=== PATIENT | female | born 1950 | race Asian ===

== ENCOUNTER 2017-12-31 09:30 | Outpatient (CLI) | payer BC, MEDICARE ==
--- NOTE | 2017-12-31 12:56 | MRI ---
MRI CERVICAL SPINE WITHOUT CONTRAST: Date: 12/31/17 Multiplanar, multisequential imaging of cervical spine obtained. HISTORY: Cervicalgia. FINDINGS: Cervical vertebra maintain normal height and alignment. Degenerative changes are prominent at C4-5 an d C5-6 with loss of disc space and anterior osteophytes at this levels. At the C3-4 disc, mild bulge and minimal effacement of the anterior subarachnoid space. No impingemen t on the cord and no foraminal encroachment. At C4-5, posterior disc bulge and spondylosis impinge on the anterior cord. Mild foraminal encroachme nt due to uncinate hypertrophy. At C5-6, posterior disc bulge and spondylosis impinge on the anterior cord. Mild foraminal encroachme nt due to uncinate hypertrophy. At C6-7, mild disc bulge and spondylosis mildly efface the anterior subarachnoid space. No cord impin gement. No evidence of foraminal stenosis or encroachment. Cord signal appears normally preserved. IMPRESSION: Degenerative disc changes most pronounced at C4-5 and C5-6. Posterior disc bulge and spondylosis at b oth these levels impinge on the anterior cord and produce mild foraminal encroachment as described ab leoe. POS: [facility]
== END 2017-12-31 09:31 | disposition home or self-care (01) ==
LOC: SCSMRI 09:30
PROVIDERS: ATTEND Family Medicine
DX: M54.2 Cervicalgia (principal); M50.321 Other cervical disc degeneration at C4-C5 level; M50.322 Other cervical disc degeneration at C5-C6 level; M50.20 Other cervical disc displacement, unspecified cervical region; M47.892 Other spondylosis, cervical region
CPT/HCPCS: 72141

== ENCOUNTER 2018-03-04 08:41 | Outpatient (CLI) | payer BC, MEDICARE | END 2018-03-04 08:42 | disposition home or self-care (01) | LOC: BICMAMMO 08:41 | PROVIDERS: ATTEND Family Medicine | DX: Z12.31 Encounter for screening mammogram for malignant neoplasm of breast (principal); M81.0 Age-related osteoporosis without current pathological fracture; M85.859 Other specified disorders of bone density and structure, unspecified thigh; R92.1 Mammographic calcification found on diagnostic imaging of breast | CPT/HCPCS: 77063; 77067; 77080 ==

== ENCOUNTER 2018-03-09 14:59 | Outpatient (CLI) | payer MEDICARE, BC | END 2018-03-09 15:00 | disposition home or self-care (01) | LOC: BICMAMMO 14:59 | PROVIDERS: ATTEND Family Medicine | DX: R92.1 Mammographic calcification found on diagnostic imaging of breast (principal) | CPT/HCPCS: 77065; G0279 ==

== ENCOUNTER → 2018-03-16 | Day surgery (SDC) | payer BC, MEDICARE ==
--- NOTE | 2018-03-16 10:09 | MMO ---
MAMMOGRAPHICALLY GUIDED STEREOTACTIC BIOPSY OF LEFT BREAST CALCIFICATIONS: History: Left breast calcifications in the upper outer aspect of the left breast. Jacquard Loom Fixer: Dr. Garza Complications: None Specimens: Six 10 gauge vacuum assisted core biopsy specimens of left breast calcifications. Anesthesia: 11 ml of buffered 1% Lidocaine. Technique: Prior to the procedure, the risk and benefits of a stereotactic biopsy of the left breast calcificati ons were explained to the patient. She consented to the procedure. Prior mammograms were reviewed showing calcifications in the upper outer aspect of the left breast. The calcifications were localized with the stereotactic machine. Approach from lateral was performed. The lateral aspect of the breast was prepped with Betadine. Lidocaine was used to anesthetize the skin and soft tissues surrounding the calcifications. A small s kin incision was made allowing for passage of a 10 gauge core biopsy device. This device was then leticia lida into the left breast in the region of the calcifications using stereotactic guidance. Once the ne edle was in place, six 10-gauge core biopsy specimens were obtained of the calcifications. A specimen evaluation was performed showing calcifications within at least two of the specimens. A bi opsy clip was then placed at the biopsy site. The needle was removed and pressure was held to maintai n hemostatis. A post procedure mammogram was performed showing the clip at the biopsy site in the upper lateral asp ect of the left breast. No residual calcifications could be seen, but there was a small amount of pos t biopsy hematoma. IMPRESSION: Status post successful stereotactic biopsy of left breast calcifications. POS: [facility]
== END ==
LOC: SDC/OP 07:11
PROVIDERS: ATTEND Family Medicine
PROC: 0HBU3ZX Excision of Left Breast, Percutaneous Approach, Diagnostic (ICD-10-PCS; principal; 2018-03-16)
DX: N60.82 Other benign mammary dysplasias of left breast (principal)
CPT/HCPCS: 19081; 76098; 88305

== ENCOUNTER 2018-06-24 14:02 | Outpatient (CLI) | payer BC, MEDICARE | END 2018-06-24 14:03 | disposition home or self-care (01) | LOC: BICULT 14:02 | PROVIDERS: ATTEND Family Medicine | DX: R09.89 Other specified symptoms and signs involving the circulatory and respiratory systems (principal); E04.2 Nontoxic multinodular goiter | CPT/HCPCS: 93880 ==

== ENCOUNTER 2019-01-19 08:52 | Outpatient (CLI) | payer BC, MEDICARE ==
--- NOTE | 2019-01-19 09:14 | SJPRAD ---
LEFT KNEE RADIOGRAPHS 2 VIEWS: DATE: 01/19/2019. PROVIDED CLINICAL HISTORY: Knee pain. FINDINGS: There is osteophyte formation about the knee. There is conspicuous medial femorotibial and patellofe moral joint space narrowing. There is no evidence of a fracture or other acute osseous abnormality. No definite evidence for knee joint capsular distention. IMPRESSION: Degenerative arthrosis of the left knee. POS: [facility]
--- NOTE | 2019-01-19 09:15 | SJPRAD ---
RIGHT KNEE RADIOGRAPHS 2 VIEWS: DATE: 01/19/2019. PROVIDED CLINICAL HISTORY: Right knee pain. FINDINGS: There is conspicuous patellofemoral joint space loss. Tricompartmental osteophyte formation with mil d medial femorotibial joint space loss. No evidence for a fracture or other acute osseous abnormalit y. No significant knee joint capsular distention. IMPRESSION: Degenerative arthrosis of the right knee with preferential involvement of the patellofemoral joint. POS: [facility]
[2019-01-19 16:20] LABS: #Basophils 0.1 thou/uL (0.0-0.2); #Eosinphils 0.2 thou/uL (0.0-0.7); #Lymphocytes 1.8 thou/uL (1.20-3.40); #Monocytes 0.5 thou/uL (0.11-0.59); #Neutrophils 3.1 thou/uL (1.40-6.50); %Basophils 1.2 % (0.0-1.0); %Eosinophils 4.1 % (0.0-10.0); %Lymphocytes 31.1 % (21.0-51.0); %Monocytes 8.6 % (0.0-10.0); Hemoglobin 12.8 g/dL (12.0-16.0); Mean Corpuscular HGB CONC 31.6 g/dL (32.0-36.0); Mean Corpuscular Hemoglobin 27.3 pg (27.0-31.0); Mean Corpuscular Volume 86.5 fL (78.0-98.0); Mean Platelet Volume 7.5 fL (7.4-10.4); Platelet Count 259 thou/uL (130-400); RBC Distribution Width 12.9 % (11.5-14.5); Red Blood Cell (RBC) Count 4.69 mill/uL (4.20-5.40); White Blood Cell (WBC) Count 5.7 thou/uL (4.8-10.8)
[2019-01-19 16:36] LABS: Hemoglobin A1c 5.2 % (4.0-6.0)
[2019-01-19 17:05] LABS: ALT (SGPT) 22 U/L (8-55); AST (SGOT) 21 U/L (5-34); Albumin 4.3 g/dL (3.4-4.8); Alkaline Phosphatase 66 U/L (40-150); Anion Gap 13 mmol/L (10-20); BUN (Urea Nitrogen) 12 mg/dL (9.8-20.1); Bilirubin, Total 0.6 mg/dL (0.2-1.2); Calc. Creatinine Clearance 0 mL/min (70-130); Calcium 9.9 mg/dL (7.8-10.44); Carbon Dioxide 29 mmol/L (23-31); Chloride 102 mmol/L (98-107); Estimated GFR-MDRD 85; Globulin 3.3 g/dL (2.4-3.5); Glucose 93 mg/dL (80-115); Potassium 4.4 mmol/L (3.5-5.1); Protein, Total 7.6 g/dL (6.0-8.3); Sodium 140 mmol/L (136-145)
== END 2019-01-19 08:53 | disposition home or self-care (01) ==
LOC: MWLC RAD 08:52
PROVIDERS: ATTEND Family Medicine
DX: M17.0 Bilateral primary osteoarthritis of knee (principal); E21.3 Hyperparathyroidism, unspecified; R53.81 Other malaise; E11.9 Type 2 diabetes mellitus without complications
CPT/HCPCS: 80053; 83036; 83970; 84443; 85025

== ENCOUNTER 2019-06-01 14:50 | Outpatient (CLI) | payer BC, MEDICARE ==
--- NOTE | 2019-06-01 16:07 | MMO ---
Bilateral MAMMO Bilat Screen [facility]. CLINICAL HISTORY: Patient is 68 years old and is seen for screening. The patient has no family history of breast cancer. The patient has no personal history of cancer. The patient has a history of left Ultrasound Guided Core Biopsy in Mar, 2018. VIEWS: The views performed were: bilateral craniocaudal with tomosynthesis and bilateral mediolateral oblique with tomosynthesis. FILMS COMPARED: The present examination has been compared to prior imaging studies performed at [facility] on 02/23/2014, 03/27/2016, 03/04/2018 and 03/09/2018. MAMMOGRAM FINDINGS: There are scattered fibroglandular densities. Left biopsy clip. Calcs in the left upper outer breast are again seen. There are no suspicious masses, suspicious calcifications, or new areas of architectural distortion. IMPRESSION: THERE IS NO MAMMOGRAPHIC EVIDENCE OF MALIGNANCY. A ROUTINE FOLLOW-UP MAMMOGRAM IN 1 YEAR IS RECOMMENDED. THE RESULTS OF THIS EXAM WERE SENT TO THE PATIENT. ACR BI-RADS Category 2 - Benign finding MAMMOGRAPHY NOTE: 1. A negative mammogram report should not delay a biopsy if a dominant of clinically suspicious mass is present. 2. Approximately 10% to 15% of breast cancers are not detected by mammography. 3. Adenosis and dense breasts may obscure an underlying neoplasm. Reported by: TIMOTHY LARSON MD Electonically Signed: [id number]
--- NOTE | 2019-06-01 16:57 | BD ---
Exam: DEXA Bone Density 06/01/19 HISTORY: Osteoporosis, menopausal. Lumbar Spine: BMD (g/cm2) T-SCORE L1 0.835 -1.4 L2 0.748 -2.5 L3 0.717 -3.3 L4 0.672 -3.5 L1-L4 0.737 -2.8 Evidence for osteoporosis with high risk for fracture. Left hip: Femoral neck: 0.675 -1.6 Total Femur: 0.890 -0.4 Evidence for osteopenia with increased risk for fracture. POS: [facility]
--- NOTE | 2019-06-01 17:00 | RAD ---
CERVICAL SPINE THREE VIEWS: 06/01/19 HISTORY: Cervicalgia without injury. Extensive disc osteophytosis with sclerosis at C4-C5 and C5-C6 with facet arthrosis. C1 and odontoid are obscured on the AP open mouth views. Mild levoscoliosis. No prevertebral soft tissue swelling. IMPRESSION: Mild levoscoliosis. Very extensive spondylosis particularly at C4-C5 and C5-C6. If there is associate d radiculopathy, consider follow-up MRI study. POS: [facility]
== END 2019-06-01 14:51 | disposition home or self-care (01) ==
LOC: BICMAMMO 14:50
PROVIDERS: ATTEND Family Medicine
DX: Z12.31 Encounter for screening mammogram for malignant neoplasm of breast (principal); M81.0 Age-related osteoporosis without current pathological fracture; M54.2 Cervicalgia; M47.812 Spondylosis without myelopathy or radiculopathy, cervical region; M41.9 Scoliosis, unspecified; M85.852 Other specified disorders of bone density and structure, left thigh
CPT/HCPCS: 72040; 77063; 77067; 77080

== ENCOUNTER 2019-06-13 12:42 | Outpatient (CLI) | payer BC, MEDICARE ==
[2019-06-13 16:09] LABS: #Eosinphils 0.4 thou/uL (0.0-0.7); #Lymphocytes 2.8 thou/uL (1.20-3.40); #Monocytes 0.5 thou/uL (0.11-0.59); #Neutrophils 3.9 thou/uL (1.40-6.50); %Basophils 0.3 % (0.0-1.0); %Eosinophils 5.5 % (0.0-10.0); %Lymphocytes 36.8 % (21.0-51.0); %Monocytes 6.3 % (0.0-10.0); %Neutrophils 51.1 % (42.0-75.0); Hemoglobin 12.3 g/dL (12.0-16.0); Mean Corpuscular HGB CONC 32.7 g/dL (32.0-36.0); Mean Corpuscular Hemoglobin 27.5 pg (27.0-31.0); Mean Corpuscular Volume 84.2 fL (78.0-98.0); Platelet Count 230 thou/uL (130-400); RBC Distribution Width 12.5 % (11.5-14.5); Red Blood Cell (RBC) Count 4.45 mill/uL (4.20-5.40); White Blood Cell (WBC) Count 7.7 thou/uL (4.8-10.8)
--- NOTE | 2019-06-14 18:51 | EKG ---
Test Reason : Blood Pressure : / mmHG Vent. Rate : 078 BPM Atrial Rate : 078 BPM P-R Int : 160 ms QRS Dur : 086 ms QT Int : 388 ms P-R-T Axes : 056 002 010 degrees QTc Int : 442 ms Normal sinus rhythm Moderate voltage criteria for LVH, may be normal variant Borderline ECG No previous ECGs available Confirmed by DR. Dayron NATARAJAN MD ([id number]) on 06/14/2019 6:51:24 PM Referred By: CARTER Confirmed By:DR. Dayron NATARAJAN MD
== END 2019-06-13 12:43 | disposition home or self-care (01) ==
LOC: LABBT 12:42
PROVIDERS: ATTEND Orthopaedic Surgery Hand Surgery
DX: Z01.818 Encounter for other preprocedural examination (principal); M67.441 Ganglion, right hand
CPT/HCPCS: 85025; 93005; 93010

== ENCOUNTER 2019-06-14 05:50 | Day surgery (SDC) | payer BC, MEDICARE ==
[2019-06-13 15:24] VITALS: BMI 27.4
[2019-06-14] MEDS ORDERED: ceFAZolin Sodium (SDC) 2 GM/100 ML BAG ONE (05:59)
[2019-06-14] MEDS ORDERED: Lidocaine 2% Jelly 5 ML TUBE ONE (06:12)
[2019-06-14] MEDS ORDERED: Fentanyl 100 MCG/2 ML VIAL ONE (06:12)
[2019-06-14] MEDS ORDERED: Bacitracin Zinc Ointment 30 gm TUBE ONE (06:14)
[2019-06-14] MEDS ORDERED: Betamet Acet/Betamet Na Ph 30 MG/5 ML VIAL ONE (06:14)
[2019-06-14] MEDS ORDERED: Bupivacaine PF 0.5% 30 ML VIAL ONE (06:14)
[2019-06-14] MEDS ORDERED: Sodium Chloride 0.9% 10 ML ONE (06:27)
[2019-06-14] MEDS ORDERED: Ketorolac Tromethamine 30 MG/ML VIAL ONE (08:31)
--- NOTE | 2019-06-14 12:23 | OP ---
DATE OF PROCEDURE: 06/14/2019 PREOPERATIVE DIAGNOSES: Right middle finger ganglion, proximal interphalangeal, right middle finger ganglion, 1 cm diameter with a stalk located at the junction of the central slip and the lateral bands just over the proximal interphalangeal joint with synovitis in the joint. PROCEDURES PERFORMED: 1. Arthrotomy of right middle finger proximal interphalangeal joint with synovectomy. 2. Ganglion excision, right middle finger proximal interphalangeal joint. 3. Irrigation of the joint with 5 mL Celestone and tenotomy of the extensor and right middle finger proximal interphalangeal joint. SPECIMEN REMOVED: Yes, the ganglion and sent to pathology. DESCRIPTION OF PROCEDURE: After successful general endotracheal anesthesia, the limb was prepped and draped. The patient underwent immediate 10 mL of 0.5% Marcaine block before the surgery was done and will get an additional 10 after the procedure. We then outlined a zigzag Duke incision over this mass, which was more dorsal and radial than central. I carried this incision after exsanguination and inflated the tourniquet to 250 mmHg pressure through the skin and subcutaneous tissue, localized the mass with incision 1 cm distal and proximal. I dissected the mass free. Elevated the mass off the extensor tendon and then we noticed there was a stalk going through less than a millimeter, so we made a 3 mm longitudinal incision in the junction between the central slip and the lateral bands. We followed the stalk and it was synovitis within the joint. We performed a small synovectomy using small Navarro instrument. We elevated the cyst, released it in the stalk and sent as specimen. I irrigated the joint with 5 mL slowly of the Celestone and then deflated the tourniquet. We closed the tenotomy area, where we visualized the joint with interrupted 6-0 Prolene buried [id number]. Hemostasis was obtained. The wound was closed with interrupted 4-0 nylon in a mattress pattern and the patient left the operating room without evidence of anesthetic or operative complication. Job ID: [id number]
== END 2019-06-14 10:10 | disposition home or self-care (01) ==
LOC: SDC 05:50
PROVIDERS: ATTEND Orthopaedic Surgery Hand Surgery
PROC: 0RBW0ZZ Excision of Right Finger Phalangeal Joint, Open Approach (ICD-10-PCS; principal; 2019-06-14)
PROC: 0LB70ZZ Excision of Right Hand Tendon, Open Approach (ICD-10-PCS; principal; 2019-06-14)
DX: M67.441 Ganglion, right hand (principal); M65.9 Synovitis and tenosynovitis, unspecified
CPT/HCPCS: 85025; 88304; 93005; 93010; J0690; J0702; J1885; J3010; J3490; S0020

== ENCOUNTER 2019-07-12 12:11 | Day surgery (SDC) | payer BC, MEDICARE ==
[2019-07-12 13:24] LABS: #Eosinphils 0.2 thou/uL (0.0-0.7); #Lymphocytes 2.6 thou/uL (1.20-3.40); #Monocytes 0.6 thou/uL (0.11-0.59); #Neutrophils 2.9 thou/uL (1.40-6.50); %Basophils 0.4 % (0.0-1.0); %Eosinophils 3.4 % (0.0-10.0); %Lymphocytes 41.5 % (21.0-51.0); %Neutrophils 45.7 % (42.0-75.0); Hemoglobin 12.3 g/dL (12.0-16.0); Mean Corpuscular HGB CONC 32.3 g/dL (32.0-36.0); Mean Corpuscular Hemoglobin 27.8 pg (27.0-31.0); Mean Corpuscular Volume 85.8 fL (78.0-98.0); Mean Platelet Volume 6.8 fL (7.4-10.4); Platelet Count 229 thou/uL (130-400); RBC Distribution Width 12.6 % (11.5-14.5); Red Blood Cell (RBC) Count 4.43 mill/uL (4.20-5.40); White Blood Cell (WBC) Count 6.3 thou/uL (4.8-10.8)
[2019-07-12] MEDS ORDERED: Lidocaine 1% PF 5 ML VIAL ONE (18:02)
[2019-07-12] MEDS ORDERED: diphenhydrAMINE 50 MG/ML VIAL ONE (18:02)
[2019-07-12] MEDS ORDERED: Ondansetron PF 4 MG/2 ML Vial ONE (18:02)
[2019-07-12] MEDS ORDERED: PROPOFOL 200 MG/20 ML VIAL ONE (18:02)
[2019-07-12] MEDS ORDERED: Dexamethasone 20 MG/5 ML VIAL ONE (18:02)
[2019-07-12] MEDS ORDERED: Fentanyl 100 MCG/2 ML VIAL ONE ×2 (18:16→19:47)
[2019-07-12] MEDS ORDERED: Sodium Chloride 0.9% 10 ML ONE (18:23)
[2019-07-12] MEDS ORDERED: Bacitracin Zinc Ointment 30 gm TUBE ONE (18:23)
[2019-07-12] MEDS ORDERED: Bupivacaine PF 0.5% 30 ML VIAL ONE (18:23)
[2019-07-12] MEDS ORDERED: Sodium Chloride 0.9% 20 ML ONE (18:24)
[2019-07-12] MEDS ORDERED: Ketorolac Tromethamine 30 MG/ML VIAL ONE (20:02)
--- NOTE | 2019-07-13 02:39 | OP ---
DATE OF PROCEDURE: 07/12/2019 PREOPERATIVE DIAGNOSES: Right middle finger PIP joint abscess with subcutaneous abscess findings, right middle finger subcutaneous abscess with thick mucopurulence, small amount of purulence on the joint capsule and tendon mechanism within the joint communicating with a small hole made to harvest the intra-articular ganglion four weeks ago. PROCEDURES PERFORMED: 1. Arthrotomy, proximal phalangeal joint debridement, and drainage. 2. Drainage of subcutaneous abscess. 3. Wound debridement, all the right middle finger proximal interphalangeal joint area. CULTURES: 1. Subcutaneous abscess. 2. Separate culture PIP joint, right middle finger. ESTIMATED BLOOD LOSS: 5 mL. TOURNIQUET TIME: 18 minutes. ANESTHESIA: General LMA technique augmented by 10 mL of 0.5% Marcaine without epinephrine metacarpophalangeal block level. INDICATION: The patient retained in office today reporting acute pain increased onset and some drainage from the distal portion of the middle finger wound, now 3.75 weeks after open removal of a ganglion, which had a connection stalk through the tendon into the joint, which was open as well. There was fear that she did not want to remove the joint and had erythema, pain, swelling and mucopurulent drainage might be communication, so operative intervention in the operating suite was indicated. DESCRIPTION OF PROCEDURE: After successful anesthesia listed above, limb was prepped and draped. Time-out was done appropriately. Injection was given at the MP joint with Marcaine 0.5% for pain relief. We then opened previous incision completely and medial to the skin, a small amount of mucopurulence escaped from the distal third of the wound. We debrided this and drained abscess. Debridement using the following techniques. A. Excision technique. B. Combination of [place] blade, tenotomy scissors, small rongeur and the Pulsavac fluid. C. This debridement would now only be subcutaneous and around tendon, but eventually would involve arthrotomy with elevation of the joint capsule and the tendon to debride the joint as well and purulence was found. After we had debrided the subcutaneous tissue and removed the abscess here, we made a 1 cm incision junction in the lateral band and the terminal portion of the central slip and visualized the joint capsule. Although mucopurulent did not escape once we started and lifted up and debrided, we saw some purulence. We debrided this using the same technique listed above. At this time, a small Crile and Ramon deformed and debrided the joint. Then, we lifted up the joint capsule and the tendon and irrigated this with 250 mL, 20 mL syringe using 18-gauge needle with antibiotics inside. We then used the remaining 2.8 L of fluid via Pulsavac with antibiotics inside and irrigated the entire wound. We deflated the tourniquet, obtained hemostasis, placed a packing underneath the skin and in the joint with Adaptic, let the skin fall over this and covered this with Adaptic, bacitracin, placed 4x4s, Kerlix, and a loosely applied Coban. The patient left the operating room with index and long finger in a dressing and the other digits free. No evidence of anesthetic or operative complication with pink, index, and middle finger before we covered the dressing. Job ID: [id number]
== END 2019-07-12 21:05 | disposition home or self-care (01) ==
LOC: SDC 12:11
PROVIDERS: ATTEND Orthopaedic Surgery Hand Surgery
PROC: 0R9W0ZZ Drainage of Right Finger Phalangeal Joint, Open Approach (ICD-10-PCS; principal; 2019-07-12)
DX: L02.511 Cutaneous abscess of right hand (principal); M00.9 Pyogenic arthritis, unspecified; Z79.899 Other long term (current) drug therapy
CPT/HCPCS: 85025; 85652; 87070; 87077; 87186; 87205; J1100; J1200; J1885; J2001; J2405; J2704; J3010; J3370; J3490; S0020

== ENCOUNTER 2019-08-19 09:24 | Emergency (ER) | payer BC, MEDICARE | END 2019-08-19 10:15 | disposition home or self-care (01) | LOC: ERS 09:24 | DX: L03.011 Cellulitis of right finger (principal) | CPT/HCPCS: 99283 ==

== ENCOUNTER 2019-08-26 10:33 | Inpatient (IN) | payer BC, MEDICARE ==
[2019-08-26] MEDS ORDERED: HYDROmorphone 0.5 MG/0.5 ML SYRINGE ONE (12:31)
[2019-08-26] MEDS ORDERED: Bacitracin Zinc Ointment 30 gm TUBE ONE (12:37)
[2019-08-26] MEDS ORDERED: Bupivacaine PF 0.5% 30 ML VIAL ONE (12:37)
[2019-08-26] MEDS ORDERED: Sodium Chloride 0.9% 10 ML ONE ×2 (12:37→13:12)
[2019-08-26] MEDS ORDERED: Promethazine HCl 25 MG/ML VIAL IM PRN ×3 (13:24→14:36)
[2019-08-26] MEDS ORDERED: PACU-Morphine 4MG/ML VIAL SLOW IVP PRN ×2 (13:24→14:10)
[2019-08-26] MEDS ORDERED: Ondansetron HCl/PF 4 MG/2 ML Vial IVP PRN ×2 (13:24→14:10)
[2019-08-26] MEDS ORDERED: HYDROmorphone 2 MG/ML VIAL SLOW IVP PRN ×2 (13:24→14:10)
[2019-08-26] MEDS ORDERED: Promethazine HCl 25 MG/ML VIAL SLOW IVP PRN ×2 (13:24→14:10)
--- NOTE | 2019-08-26 13:28 | SPC ---
Sonographic guided left upper extremity PICC placement HISTORY: Osteomyelitis. FINDINGS: After explaining the procedure and answering all questions, the left upper extremity was pr epped and draped in usual sterile fashion. Sterile technique, buffered local anesthesia, sonographic guidance, and a 22-gauge needle were used to carefully access the left brachial vein. Sta ndard technique was used to place the tip of a 5 Albanian dual-lumen PICC so that the tip lies at the upper SVC. Catheter was flushed and secured externally. Patient tolerated the procedure well and was returned in unchanged condition. Fluoroscopy time 0.1 minutes. IMPRESSION: Upper extremity PICC is ready for use.
[2019-08-26] MEDS ORDERED: Tobramycin Sulfate 1.2 GM VIAL ONE (13:31)
[2019-08-26] MEDS ORDERED: Morphine Sulfate 2 MG/ML SYRINGE SLOW IVP PRN (14:10)
[2019-08-26] MEDS ORDERED: HYDROcodone/Acetaminophen 5/325 mg Tablet PO PRN (14:36)
[2019-08-26] MEDS ORDERED: Communication Order-Pharmacy FS PRN (14:45)
--- NOTE | 2019-08-26 15:17 | RAD ---
RADIOGRAPH CHEST 1 VIEW: DATE: 08/26/2019 HISTORY: 68-year-old female with postsurgical dyspnea FINDINGS: There are no airspace densities, pulmonary edema, pneumothorax, or cardiomegaly. The lateral costophr enic angles are sharp. Left-sided PICC distal tip has been retracted back slightly to the left of midline overlying the upper mediastinum or left clavicular head, probably in the left brachiocephalic vein. IMPRESSION: 1. No acute cardiopulmonary findings. 2. Partial retraction of left-sided peripherally inserted central catheter.
[2019-08-26 15:55] LABS: #Eosinphils 0.1 thou/uL (0.0-0.7); #Lymphocytes 1.6 thou/uL (1.20-3.40); #Monocytes 0.2 thou/uL (0.11-0.59); #Neutrophils 6.4 thou/uL (1.40-6.50); %Basophils 0.2 % (0.0-1.0); %Eosinophils 1.5 % (0.0-10.0); %Lymphocytes 19.3 % (21.0-51.0); %Monocytes 2.9 % (0.0-10.0); %Neutrophils 76.1 % (42.0-75.0); Hemoglobin 12.5 g/dL (12.0-16.0); Mean Corpuscular HGB CONC 33.1 g/dL (32.0-36.0); Mean Corpuscular Hemoglobin 27.6 pg (27.0-31.0); Mean Corpuscular Volume 83.4 fL (78.0-98.0); Mean Platelet Volume 7.2 fL (7.4-10.4); Platelet Count 221 thou/uL (130-400); RBC Distribution Width 13.1 % (11.5-14.5); Red Blood Cell (RBC) Count 4.51 mill/uL (4.20-5.40); White Blood Cell (WBC) Count 8.4 thou/uL (4.8-10.8)
[2019-08-26 16:10] VITALS: BMI 27.1
[2019-08-26 16:49] LABS: Chloride 105 mmol/L (98-107); Potassium 3.3 mmol/L (3.5-5.1); Sodium 138 mmol/L (136-145)
[2019-08-26 16:50] LABS: Calcium 9.3 mg/dL (7.8-10.44); Glucose 126 mg/dL (80-115)
[2019-08-26 16:52] LABS: Anion Gap 14 mmol/L (10-20); Carbon Dioxide 22 mmol/L (23-31)
[2019-08-26 16:54] LABS: BUN (Urea Nitrogen) 12 mg/dL (9.8-20.1); Calc. Creatinine Clearance 84 mL/min (70-130); Estimated GFR-MDRD 84
--- NOTE | 2019-08-26 17:09 | OP ---
DATE OF PROCEDURE: 08/26/2019 PREOPERATIVE DIAGNOSIS: Infectious arthritis of proximal phalangeal joint, right middle finger, possible osteomyelitis in the phalanges. FINDINGS: No gross abscess subcutaneously, small/film layer, some in a 2 mm hole in the extensor mechanism with previous ganglion cyst resected and then slightly intra-articular. No true soft in the bone, but bone biopsies were taken from 2 sites on either side of the joint. PROCEDURES PERFORMED: 1. Biopsy of bone, proximal phalanx of neck. 2. Biopsy of bone, middle phalanx base. 3. Arthrotomy with drainage of infection and synovectomy, right middle finger proximal phalangeal joint. 4. Application of antibiotic beads. TOURNIQUET TIME: 15 minutes. ESTIMATED BLOOD LOSS: 10 mL. INJECTABLE: A 20 mL of 0.5% Marcaine, 10 before the surgery and 10 at the end. DESCRIPTION OF PROCEDURE: After successful general endotracheal anesthesia, limb was prepped and draped. She had the first 10 mL of 0.5% Marcaine injection, waited 5 minutes, exsanguinated the limb with the tourniquet at 250 mmHg pressure. We then took her previous incision extended 6 mm distally and 4 mm proximally until we could visualize the extensor mechanism. We immediately the area of slime flat/film that was 1.5 mm thick, that well across the subcutaneous tissue. When I lifted this up, there was a small hole extensor mechanism, where we had previously harvested her ganglion from the joint. We lifted up the extensor mechanism by making an incision between the extensor mechanism and the intrinsic terminal tendon, visualized the joint as well as the base of the middle phalanx of the neck approximately. The joint has filled slightly with synovitis, so we resected this using a combination of [place] blade and tenotomy scissors. We then irrigated the joint with the 1st liter of normal saline under bulb syringe pressure with antibiotics inside. We then took a biopsy of the bone of the base of the middle phalanx at the neck of the proximal phalanx with the neck possibly a little small, possibly in removal with slightly wider. Specimens were sent of both. We then irrigated with another liter of normal saline and Pulsavac pressure, and we were able to obtain good hemostasis once deflated the tourniquet. We sent specimens to include joint culture. Biopsy of the film of infection for culture, bone biopsy for culture as well as specimen and then the patient had last liter of irrigation with bulb syringe with antibiotics inside, left the operating room without evidence of anesthetic or operative complication. We plan for dressing changes at discharge. Job ID: [id number]
[2019-08-26] MEDS: Vancomycin HCl 1 GM in Premix Bag 1 BAG IVPB SCH (17:59)
[2019-08-26] MEDS: Aspirin 81 mg Enteric Coated Tablet PO SCH (20:23)
--- NOTE | 2019-08-26 21:55 | PDOC.HOSPP ---
- Subjective Encounter Date: 08/26/19 Encounter Time: 21:54 Subjective: Patient seen and examined for med mngt. Had some transient chest tightness post surgery - improved with O2. No N/V/diaphoresis/syncope. No new complaints now. Follows Dr Landers and [facility]. Had Stress test and Echo 6 months ago - "normal " per patient report. No episodes of angina prior to this admission. - Objective Vital Signs & Weight: Vital Signs (12 hours) Temp Pulse Resp BP Pulse Ox 08/26/19 15:40 97.6 F 91 16 164/73 H 96 Weight Weight 148 lb I&O: 08/25/19 08/26/19 08/27/19 06:59 06:59 06:59 Intake Total 120 Balance 120 Result Diagrams: 08/26/19 15:46 08/26/19 21:57 Additional Labs: Laboratory Tests 08/26/19 15:46 Potassium 3.3 L EKG Reviewed by me: Yes (SR/LAD/LVH/PVC/NSST changes) Hospitalist ROS - Review of Systems Constitutional: denies: fever, chills, sweats, weakness, malaise, other Respiratory: denies: cough, dry, shortness of breath, hemoptysis, SOB with excertion, pleuritic pain, sputum, wheezing, other Cardiovascular: denies: chest pain, palpitations, orthopnea, paroxysmal noc. dyspnea, edema, light headedness, other Gastrointestinal: denies: nausea, vomiting, abdominal pain, diarrhea, constipation, melena, hematochezia, other Genitourinary: denies: dysuria, frequency, incontinence, hematuria, retention, other - Medication Medications: Active Medications Generic Name Dose Route Start Last Admin Trade Name Freq PRN Reason Stop Dose Admin Aspirin 81 mg 08/26/19 21:00 08/26/19 20:23 Ecotrin PO 81 mg BID JEROME Administration Vancomycin HCl 1 gm/ Device 200 mls @ 200 mls/hr 08/26/19 18:00 08/26/19 17: 59 IVPB 200 mls 0600,1800 JEROME Administration - Exam General Appearance: NAD Neck: supple, no JVD Heart: RRR, no gallops, no rubs Respiratory: CTAB, no wheezes, no rales, no ronchi Gastrointestinal: soft, non-tender, non-distended, normal bowel sounds Extremities: no cyanosis, no edema Hosp A/P - Plan DVT proph w/SCDs Chest tightness post surgery - improved with O2 - resolved now PVC on EKG Hypokalemia Negative stress test 6 months ago per patient report Dyslipidemia CKD 2 PLAN: Serial troponins Replace Potassium Check Magnessium Repeat EKG in AM Obtain records from [facility] in AM Cont to monitor Add low dose ASA NTG PRN Full code DPOA - family
[2019-08-26] MEDS ORDERED: Potassium Chloride 10 MEQ TAB PO SCH (22:15)
[2019-08-26] MEDS: traMADol HCl 50 MG TAB PO PRN (22:23)
[2019-08-26 22:32] LABS: Magnesium 2.1 mg/dL (1.6-2.6)
[2019-08-27] MEDS ORDERED: Nitroglycerin 0.4 MG TAB (25 Tab Bottle) PO PRN (02:21)
[2019-08-27] MEDS: traMADol HCl 50 MG TAB PO PRN ×4 (05:08→23:09)
[2019-08-27] MEDS: Vancomycin HCl 1 GM in Premix Bag 1 BAG IVPB SCH ×2 (05:08→17:03)
[2019-08-27] MEDS: Aspirin 81 mg Enteric Coated Tablet PO SCH ×2 (08:15→19:57)
[2019-08-27] MEDS: Acetaminophen 325 MG TAB PO PRN ×3 (11:04→23:09)
--- NOTE | 2019-08-27 12:36 | PDOC.HOSPP ---
- Subjective Encounter Date: 08/27/19 Encounter Time: 08:00 Subjective: has right hand pain at surgical site no sob or chest pain is amb in room - Objective Vital Signs & Weight: Vital Signs (12 hours) Temp Pulse Resp BP Pulse Ox 08/27/19 11:55 97.6 F 71 14 114/65 95 08/27/19 07:12 97.6 F 78 16 122/70 94 L 08/27/19 03:46 97.9 F 76 18 117/65 95 Weight Weight 148 lb I&O: 08/26/19 08/27/19 08/28/19 06:59 06:59 06:59 Intake Total 120 Balance 120 Result Diagrams: 08/26/19 15:46 08/26/19 21:57 Hospitalist ROS - Medication Medications: Active Medications Generic Name Dose Route Start Last Admin Trade Name Freq PRN Reason Stop Dose Admin Acetaminophen 650 mg 08/26/19 14:36 08/27/19 11:04 Tylenol PO 650 mg Q6H PRN Administration Headache/Temp >101F/Mild Pain Aspirin 81 mg 08/26/19 21:00 08/27/19 08:15 Ecotrin PO 81 mg BID JEROME Administration Vancomycin HCl 1 gm/ Device 200 mls @ 200 mls/hr 08/26/19 18:00 08/27/19 05: 08 IVPB 200 mls 0600,1800 JEROME Administration Tetanus/Diphtheria Toxoids Adsorbed 0.5 ml 08/27/19 14:45 08/26/19 21:40 Tenivac Syringe IM 08/27/19 16:45 0.5 ml ONE JEROME Administration Tramadol HCl 50 mg 08/26/19 14:36 08/27/19 11:03 Ultram PO 50 mg Q6H PRN Administration Mild Pain (1-3) - Exam General Appearance: NAD, awake alert Eye: PERRL, anicteric sclera ENT: no oropharyngeal lesions, moist mucosa Neck: supple, no JVD Heart: no murmur, no gallops Respiratory: no wheezes, no rales Gastrointestinal: soft, non-tender, non-distended, normal bowel sounds Extremities: no edema Extremities - other findings: right hand in dressing Neurological: cranial nerve grossly intact, no focal deficits Psychiatric: normal affect, A&O x 3 Hosp A/P (1) Abscess of right middle finger Code(s): L02.511 - CUTANEOUS ABSCESS OF RIGHT HAND Status: Acute (2) Dyslipidemia Code(s): E78.5 - HYPERLIPIDEMIA, UNSPECIFIED Status: Chronic (3) Chest pain Code(s): R07.9 - CHEST PAIN, UNSPECIFIED Status: Resolved - Plan hemostable has picc line, on vanc prior cultures grew pseudomonas ID consult has recurrent infection in her fingers chest pain completely resolved morphine prn, asp bid
[2019-08-27] MEDS ORDERED: TETANUS AND DIPHTHERIA TOX/PF 0.5 ML DISP.SYRIN IM SCH (14:45)
[2019-08-27] MEDS: Docusate 100 MG CAP PO SCH (19:57)
[2019-08-27] MEDS: Latanoprost 0.005% Ophth Soln 2.5 ml Bottle EA EYE SCH (19:58)
[2019-08-27] MEDS ORDERED: Melatonin 3 MG TAB PO SCH (21:00)
[2019-08-28 05:45] LABS: Vancomycin, Trough 11.5 ug/mL
[2019-08-28] MEDS: Vancomycin HCl 1 GM in Premix Bag 1 BAG IVPB SCH (06:28)
[2019-08-28] MEDS: Vancomycin HCl 1.25 GM in Sodium Chloride 0.9% 250 ML 250 ML IVPB SCH ×2 (06:29→17:06)
[2019-08-28] MEDS: Polyethylene Glycol 3350 17 GM Packet PO SCH (08:39)
[2019-08-28] MEDS: traMADol HCl 50 MG TAB PO PRN (08:39)
[2019-08-28] MEDS: Acetaminophen 325 MG TAB PO PRN (08:39)
[2019-08-28] MEDS: Docusate 100 MG CAP PO SCH ×2 (08:39→19:55)
[2019-08-28] MEDS: Aspirin 81 mg Enteric Coated Tablet PO SCH ×2 (08:40→19:55)
[2019-08-28] MEDS: Morphine 4 MG/ML VIAL SLOW IVP PRN (12:50)
--- NOTE | 2019-08-28 13:11 | PDOC.HOSPP ---
- Subjective Encounter Date: 08/28/19 Encounter Time: 09:00 Subjective: no chest pain or sob or palp right hand pain is better - Objective Vital Signs & Weight: Vital Signs (12 hours) Temp Pulse Resp BP Pulse Ox 08/28/19 11:48 97.8 F 72 16 124/72 96 08/28/19 07:30 97.7 F 67 19 118/67 96 08/28/19 03:50 97.6 F 74 16 121/63 92 L Weight Weight 148 lb I&O: 08/27/19 08/28/19 08/29/19 06:59 06:59 06:59 Intake Total 120 2140 Balance 120 2140 Result Diagrams: 08/26/19 15:46 08/26/19 21:57 Hospitalist ROS - Medication Medications: Active Medications Generic Name Dose Route Start Last Admin Trade Name Freq PRN Reason Stop Dose Admin Acetaminophen 650 mg 08/26/19 14:36 08/28/19 08:39 Tylenol PO 650 mg Q6H PRN Administration Headache/Temp >101F/Mild Pain Aspirin 81 mg 08/26/19 21:00 08/28/19 08:40 Ecotrin PO 81 mg BID JEROME Administration Docusate Sodium 100 mg 08/27/19 21:00 08/28/19 08:39 Colace PO 100 mg BID JEROME Administration Vancomycin HCl 1.25 gm/ Sodium 250 mls @ 166.667 mls/hr 08/28/19 06:00 06:29 Chloride IVPB 250 mls 0600,1800 JEROME Administration Latanoprost 1 drop 08/27/19 21:00 08/27/19 19:58 Xalatan 0.005% Ophth Soln EA EYE Not Given HS JEROME Morphine Sulfate 4 mg 08/26/19 14:36 08/28/19 12:50 Morphine SLOW IVP 4 mg Q2H PRN Administration Severe Pain (7-10) Polyethylene Glycol 17 gm 08/28/19 09:00 08/28/19 08:39 Miralax PO 17 gm DAILY JEROME Administration Sodium Chloride 10 ml 08/26/19 14:36 08/27/19 17:04 Flush - Normal Saline IVF 10 ml PRN PRN Administration Saline Flush Tramadol HCl 50 mg 08/26/19 14:36 08/28/19 08:39 Ultram PO 50 mg Q6H PRN Administration Mild Pain (1-3) - Exam General Appearance: NAD, awake alert Eye: PERRL, anicteric sclera ENT: no oropharyngeal lesions, moist mucosa Neck: supple, no JVD Heart: RRR, no murmur Respiratory: no wheezes, no rales Gastrointestinal: soft, non-tender, non-distended, no palpable masses Extremities - other findings: right hand in dressing Neurological: cranial nerve grossly intact, no focal deficits Psychiatric: normal affect, A&O x 3 Hosp A/P (1) Abscess of right middle finger Code(s): L02.511 - CUTANEOUS ABSCESS OF RIGHT HAND Status: Acute (2) Dyslipidemia Code(s): E78.5 - HYPERLIPIDEMIA, UNSPECIFIED Status: Chronic (3) Chest pain Code(s): R07.9 - CHEST PAIN, UNSPECIFIED Status: Resolved - Plan hemostable has picc line, on vanc prior cultures grew pseudomonas ID consult has recurrent infection in her fingers x3 surgeries so far chest pain completely resolved morphine prn, asp bid
[2019-08-28] MEDS ORDERED: Melatonin 3 MG TAB PO PRN (18:19)
[2019-08-28] MEDS: Latanoprost 0.005% Ophth Soln 2.5 ml Bottle EA EYE SCH (19:56)
[2019-08-28] MEDS: Cefepime 2 GM in Sodium Chloride 0.9% 100 ML IVPB SCH (20:02)
--- NOTE | 2019-08-28 20:56 | CON ---
DATE OF CONSULTATION: 08/28/2019 REASON FOR CONSULTATION: Right hand postop infection. HISTORY OF PRESENT ILLNESS: A 68-year-old with no significant past medical history other than hyperparathyroidism and cataracts, who developed a ganglion cyst in the right middle finger and was operated on by Dr. Hinojosa on June. She developed inflammatory changes postoperatively and was diagnosed with Pseudomonas aeruginosa infection that had persisted, and she was readmitted and had a repeat drainage procedure. 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 No sore throat, odynophagia, or dysphagia. No dental pain. No neck pain. No dyspnea or cough. No sputum production. No abdominal pain or diarrhea. No genitourinary symptoms. No joint symptoms other than chronic joint pains intermittently. PAST MEDICAL HISTORY: Hyperparathyroidism with parathyroidectomy, cataract surgery. ALLERGIES: NONE. CURRENT MEDICATIONS: 1. [place]. 2. Ecotrin. 3. Colace. 4. Xalatan. 5. Nitrostat. 6. Morphine. 7. Vancomycin. 8. Promethazine. FAMILY HISTORY: Noncontributory. SOCIAL HISTORY: Never a smoker. No alcoholic beverage use. . 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 She is from [facility] originally. Last travel about a year ago to [facility]. PHYSICAL EXAMINATION: VITAL SIGNS: Essentially normal temperature and other vital signs within normal limits. GENERAL: Appears in no distress, oriented. SKIN: Shows the right hand findings. The dressing was not removed. No lymphadenopathy. HEENT: Right intraocular medial pick. There is a dense whitish discoloration of the iris. The left eye appears normal. Sclerae are white. Conjunctivae are normal. Oral cavity with numerous cowlitz teeth in place with no significant inflammatory changes. NECK: Supple. No jugular vein distention. No carotid bruits. LUNGS: Symmetric. Clear breath sounds. HEART: S1 and S2. Regular rate without murmurs. No S3 or S4. ABDOMEN: Soft, not distended or tender. No ascites. No bladder distention. MUSCULOSKELETAL: No other joint inflammatory process outside the area of involvement. VASCULAR: Normal. NEUROLOGIC: Normal. LABORATORY DATA: White cell count 8.4, hemoglobin 12.5, MCV normal, platelets 221 with 76% neutrophils. Sodium 138, creatinine 0.7. Microbiology with P aeruginosa, two different samples from the surgery from July 12. The cultures from this latest operative report with no organisms seen in one sample and likewise in another sample. ASSESSMENT AND PLAN: Pseudomonas aeruginosa postop infection of ganglion cyst removal. Biopsies of bone were taken. We will switch her to cefepime following the susceptibility results from the sample submitted, 2 g q.12 hours or 1 g q.8 hours. 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 The duration of therapy will depend on bone biopsy, but we will treat at least for 3 to 4 weeks. Follow up labs. Job ID: [id number]
[2019-08-29] MEDS ORDERED: Milk Of Magnesia 30 ML UDCUP PO PRN (06:07)
[2019-08-29] MEDS: Vancomycin HCl 1.25 GM in Sodium Chloride 0.9% 250 ML 250 ML IVPB SCH (06:17)
[2019-08-29] MEDS ORDERED: traMADol HCl 50 MG TAB PO PRN ×2 (07:30)
[2019-08-29] MEDS: Docusate 100 MG CAP PO SCH (08:09)
[2019-08-29] MEDS: Aspirin 81 mg Enteric Coated Tablet PO SCH (08:09)
[2019-08-29] MEDS: Polyethylene Glycol 3350 17 GM Packet PO SCH (08:09)
[2019-08-29] MEDS: Cefepime 2 GM in Sodium Chloride 0.9% 100 ML IVPB SCH (08:42)
[2019-08-29] MEDS: traMADol HCl 50 MG TAB PO PRN (08:48)
[2019-08-29 11:48] VITALS: TEMP 97.5
[2019-08-29] MEDS ORDERED: Heparin 1,000 UNITS/ML VIAL ONE (12:00)
[2019-08-29] MEDS: Morphine 4 MG/ML VIAL SLOW IVP PRN (13:54)
[2019-08-29 16:07] VITALS: BP 119/70
--- NOTE | 2019-08-29 23:12 | EKG ---
Test Reason : Blood Pressure : / mmHG Vent. Rate : 093 BPM Atrial Rate : 093 BPM P-R Int : 158 ms QRS Dur : 080 ms QT Int : 376 ms P-R-T Axes : 047 -04 016 degrees QTc Int : 467 ms Sinus rhythm with occasional Premature ventricular complexes Possible Left atrial enlargement Left ventricular hypertrophy Nonspecific ST abnormality Abnormal ECG When compared with ECG of 13-JUN-2019 15:47, Premature ventricular complexes are now Present Confirmed by ANTIONETTE GUERRERO M.D. ([id number]) on 08/29/2019 11:12:00 PM Referred By: CARTER Confirmed By:ANTIONETTE GUERRERO M.D.
--- NOTE | 2019-08-29 23:15 | EKG ---
Test Reason : AM Blood Pressure : / mmHG Vent. Rate : 079 BPM Atrial Rate : 079 BPM P-R Int : 166 ms QRS Dur : 084 ms QT Int : 394 ms P-R-T Axes : 062 004 024 degrees QTc Int : 451 ms Normal sinus rhythm Possible Left atrial enlargement Borderline ECG When compared with ECG of 26-AUG-2019 14:55, (Unconfirmed) Premature ventricular complexes are no longer Present Confirmed by ANTIONETTE GUERRERO M.D. ([id number]) on 08/29/2019 11:14:57 PM Referred By: Jessica CONNOR Confirmed By:ANTIONETTE GUERRERO M.D.
== END 2019-08-29 17:45 | disposition home health service (06) | DRG 857 ==
LOC: SDC 10:33 → SURG B 14:36
PROVIDERS: ADMIT Orthopaedic Surgery Hand Surgery; ATTEND Orthopaedic Surgery Hand Surgery
PROC: 0PBT0ZX Excision of Right Finger Phalanx, Open Approach, Diagnostic (ICD-10-PCS; principal; 2019-08-26)
PROC: 0RBW0ZZ Excision of Right Finger Phalangeal Joint, Open Approach (ICD-10-PCS; 2019-08-26)
PROC: 0R9W0ZZ Drainage of Right Finger Phalangeal Joint, Open Approach (ICD-10-PCS; 2019-08-26)
DX: T81.40XA Infection following a procedure, unspecified, initial encounter (principal); L02.511 Cutaneous abscess of right hand; E89.0 Postprocedural hypothyroidism; E78.5 Hyperlipidemia, unspecified; R07.9 Chest pain, unspecified; M13.841 Other specified arthritis, right hand; Y83.8 Other surgical procedures as the cause of abnormal reaction of the patient, or of later complication, without mention of misadventure at the time of the procedure; E87.6 Hypokalemia; N18.2 Chronic kidney disease, stage 2 (mild)
CPT/HCPCS: 36415; 36569; 71045; 80048; 80202; 83735; 84484; 85025; 85652; 87070; 87205; 88305; 88307; 88312; 88331; 88334; 90714; 93005; 93010; 94760; C1713; C1751; J0692; J1170; J1644; J2270; J3260; J3370; J3490; J7050; S0020

== ENCOUNTER 2022-08-26 16:04 | Outpatient (CLI) | payer BC, MEDICARE | END 2022-08-26 16:05 | disposition home or self-care (01) | LOC: BICRAD 16:04 | PROVIDERS: ATTEND Family Medicine | DX: M25.562 Pain in left knee (principal) ==

== ENCOUNTER 2022-10-22 15:50 | Outpatient (CLI) | payer BC, MEDICARE | END 2022-10-22 15:51 | disposition home or self-care (01) | LOC: BICULT 15:50 | PROVIDERS: ATTEND Family Medicine | DX: Z12.39 Encounter for other screening for malignant neoplasm of breast (principal); R92.8 Other abnormal and inconclusive findings on diagnostic imaging of breast ==

== ENCOUNTER 2025-08-08 13:11 | Outpatient (CLI) | payer BC, MEDICARE | END 2025-08-08 13:12 | disposition home or self-care (01) | LOC: SCSBT 13:11 | PROVIDERS: ATTEND Internal Medicine Hematology & Oncology | DX: M81.8 Other osteoporosis without current pathological fracture (principal); M85.851 Other specified disorders of bone density and structure, right thigh; M85.852 Other specified disorders of bone density and structure, left thigh | CPT/HCPCS: 77080 ==